=== PATIENT | female | born 1955 | race Caucasian/White ===

== ENCOUNTER 2023-08-16 18:32 | Emergency (ER) | payer MEDICAID ==
[~2023-08-16] VITALS: Ht 165.1 cm; Wt 81.0 kg
[~2023-08-16 18:32] MED LIST: ALBU6.7H14 INH; LORA-269 PO
[2023-08-16] MEDS: LORazepam 1 MG tablet PO PRN (19:27)
[2023-08-16 19:35] LABS: BASOPHILS # (AUTO) 0.1 X10'3 (0-0.2); BASOPHILS % (AUTO) 1.4 % (0-1); EOSINOPHILS # (AUTO) 0.3 X10'3 (0-0.9); EOSINOPHILS % (AUTO) 4.4 % (0-6); HEMATOCRIT 41.5 % (35.0-45.0); LYMPHOCYTES # (AUTO) 2.2 X10'3 (1.1-4.8); LYMPHOCYTES % (AUTO) 36.5 % (21-51); MEAN CORPUSCULAR HEMOGLOBIN 31.9 PG (27.0-31.0); MEAN CORPUSCULAR HGB CONC 33.8 g/dL (33.0-36.5); MEAN CORPUSCULAR VOLUME 94.4 FL (78-98); MEAN PLATELET VOLUME 9.6 FL (7.4-10.4); MONOCYTES # (AUTO) 0.4 X10'3 (0-0.9); MONOCYTES % (AUTO) 6.6 % (2-12); NEUTROPHILS % (AUTO) 51.1 % (42-75); PLATELET COUNT 219 X10'3 (140-440); RED BLOOD COUNT 4.39 X10'6 (4.20-5.60); WHITE BLOOD COUNT 5.9 X10'3 (4.5-11.0)
[2023-08-16 19:51] LABS: ALANINE AMINOTRANSFERASE 40 U/L (12-78); ALBUMIN 3.5 G/DL (3.4-5.0); ALKALINE PHOSPHATASE 78 IU/L (46-116); ANION GAP 9 (8-16); ASPARTATE AMINO TRANSFERASE 31 U/L (10-37); BLOOD UREA NITROGEN 16 MG/DL (7-18); BUN/CREATININE RATIO 22.2 (10.0-20.0); CALCIUM 8.4 MG/DL (8.5-10.1); CHLORIDE 101 MMOL/L (99-107); CREATININE 0.72 MG/DL (0.40-0.90); ETHANOL 198 MG/DL (<10); GLUCOSE 103 MG/DL (70-104); POTASSIUM 4.4 MMOL/L (3.5-5.1); SALICYLATE 4.4 MG/DL (4.0-20.0); SODIUM 135 MMOL/L (135-145); TOTAL CARBON DIOXIDE 24.9 MMOL/L (24-32); TOTAL PROTEIN 7.1 G/DL (6.4-8.2); eCRCL 69 ML/MIN; eGFR 81 ML/MIN
[2023-08-16 20:08] LABS: BILIRUBIN,TOTAL 0.1 MG/DL (0.1-1.0)
[2023-08-16 20:09] LABS: ACETAMINOPHEN < 2.0 UG/ML (10-30); BILIRUBIN,DIRECT < 0.1 MG/DL (0-0.3)
[2023-08-16 20:44] LABS: BILIRUBIN,URINE NEGATIVE (Neg); CLARITY,URINE CLEAR (Clear); COLOR,URINE STRAW (Yellow); GLUCOSE, URINE NEGATIVE (Neg); KETONES,URINE NEGATIVE (Neg); LEUKOCYTE ESTERASE ,URINE NEGATIVE (Neg); NITRITES, URINE NEGATIVE (Neg); OCCULT BLOOD,URINE NEGATIVE (Neg); PROTEIN,URINE NEGATIVE (Neg); UROBILINOGEN,URINE 0.2 E.U/dL (0.2-1.0)
[2023-08-16 20:49] LABS: UA COLLECTION TYPE CLN CATCH MIDSTREAM
[2023-08-16 20:59] LABS: URINE AMPHETAMINE SCREEN NEGATIVE (Neg); URINE BARBITUATE SCREEN NEGATIVE (Neg); URINE BENZODIAZEPINES SCREEN NEGATIVE (Neg); URINE CANNABINOID SCREEN NEGATIVE (Neg); URINE COCAINE SCREEN NEGATIVE (Neg); URINE METHADONE SCREEN NEGATIVE (Neg); URINE PHENCYCLIDINE SCREEN NEGATIVE (Neg)
[2023-08-16] MEDS ORDERED: THIA100T66 PO (21:00)
[2023-08-16] MEDS ORDERED: BUSP10TA3 PO (21:00)
[2023-08-16] MEDS ORDERED: NALT50TA PO (21:00)
[2023-08-16] MEDS ORDERED: ATOR20TA66 PO (21:00)
[2023-08-16] MEDS ORDERED: FOLI1TAB27 PO (21:00)
[2023-08-16] MEDS ORDERED: HYDROCHLOROTHIAZIDE (21:00)
[2023-08-16] MEDS ORDERED: PANT40TA54 PO (21:00)
[2023-08-16] MEDS ORDERED: SERT-434 PO (21:00)
[2023-08-16] MEDS: LORazepam 1 MG tablet PO ONE (23:46)
[2023-08-17] MEDS: busPIRone 5mg tablet PO SCH (00:18)
[2023-08-17 03:12] VITALS: RESP 20
[2023-08-17 06:13] VITALS: BP 134/72; PULSE 70; O2SAT 97
[2023-08-17] MEDS: folic acid 1mg tablet PO SCH (09:23)
[2023-08-17] MEDS: sertraline 50mg tablet PO SCH (09:24)
[2023-08-17] MEDS: LORazepam 1 MG tablet PO PRN (09:24)
[2023-08-17] MEDS: thiamine 100mg tablet PO SCH (09:24)
[2023-08-17] MEDS: atorvastatin 20mg tablet PO SCH (09:24)
[2023-08-17] MEDS: HYDROchlorothiazide 12.5mg capsule PO SCH (09:34)
[2023-08-17] MEDS: naltrexone 50mg tablet PO SCH (09:47)
[2023-08-17 11:28] VITALS: TEMP 98
== END 2023-08-17 10:40 | disposition home or self-care (01) ==
LOC: ER 18:33
DX: F10.10 Alcohol abuse, uncomplicated (principal); R45.851 Suicidal ideations; F32.9 Major depressive disorder, single episode, unspecified; E66.9 Obesity, unspecified; Z20.822 Contact with and (suspected) exposure to COVID-19
CPT/HCPCS: 36415; 80048; 80076; 80305; 80320; 80329; 81003; 85025; 87811; 99284; 99285